=== PATIENT | male | born 1995 | race Caucasian/White ===

== ENCOUNTER → 2017-09-08 | Outpatient (CLI) | payer OTHER ==
[2012-05-02 20:11] VITALS: BP 105/46
== END ==
LOC: RAD 07:34
DX: M25.562 Pain in left knee (principal); M25.561 Pain in right knee

== ENCOUNTER 2017-10-14 09:30 | Outpatient (RCR) | payer OTHER ==
[2012-05-02 20:11] VITALS: BP 105/46
== END 2017-10-14 10:00 | disposition home or self-care (01) ==
LOC: PT 09:30
DX: M76.52 Patellar tendinitis, left knee (principal); M76.51 Patellar tendinitis, right knee